=== PATIENT | male | born 1980 | race Caucasian/White ===

== ENCOUNTER 2023-05-15 12:19 | Emergency (ER) | payer MEDICAID, SELFPAY ==
[2023-05-15 12:25] VITALS: BP 123/80; PULSE 98; RESP 16; TEMP 36.9; O2SAT 99; BMI 19.8
--- NOTE | 2023-05-15 12:34 | [facility].EDGENADL ---
Discharge Plan Disposition Patient Disposition: Home, Self-Care Condition: Good Referrals Follow up/Referrals: Sebastian Drew [Primary Care Provider] - See instructions Activity Restrictions/Add. Instructions Additional Instructions/Restrictions: You were evaluated in the emergency department today. Please follow-up closely with your primary care provider. Return to the emergency department for any new or worsening symptoms. Take Tylenol and ibuprofen at home as needed for pain. Clinical Impressions Clinical Impression: Headache, Abdominal pain Instructions Patient Instructions: DI for Abdominal Pain-Adult, DI for Headache Discharge ED Provider: Nely Ruiz General Adult HPI General Chief complaint: Weakness Stated complaint: headache,neck pain, no accident,abd pain Time Seen by Provider: 05/15/23 12:23 Mode of Arrival: Ambulatory Source of Information: Patient Limitations: No Limitations Description of Symptoms (Recalled from ER Triage Doc. by RN): Presents via POV with c/o general malaise, fatigue, headache, neck pain, diffuse abd pain, and subjective intermittent fever x 4 days. Denies n/v/d. Last BM x 2 days (normal consistency). History of Present Illness HPI narrative: This patient is a 42-year-old male who reports a past medical history of migraines presenting to the emergency department for evaluation with concern for headache, subjective fever, neck pain, diffuse abdominal pain, and fatigue for the last 4 days. He states that he has been pretty much sleeping for the entire 4 days. He has not been eating or drinking very much. He denies any nausea, vomiting, or changes in bowel movements. His last bowel movement was 2 days ago, which he attributes to not eating. He states that he has had photophobia associated with his headache, but he denies any vision changes, numbness, tingling, unilateral weakness, nuchal rigidity, or other concerns. He denies taking any Tylenol, ibuprofen, or other medications to alleviate his symptoms. He states that he found an antibiotic at home and has been taking it to see if it helps get him feeling better, but it has not. Related Data Allergies Allergy/AdvReac Type Severity Reaction Status Date / Time No Known Allergies Allergy Verified 05/15/23 12:29 [facility] Disclaimer: The information contained in this section may have been updated after the patient was seen, as this information can be updated by other users. Social History Smoking Status: Current every day smoker alcohol intake: never current occupational status: employed Travel in the last 8 weeks: None ROS Obtained: Yes All systems reviewed & no additional complaints except as documented 14 point review of systems obtained and negative except as mentioned in HPI. Physical Exam General General appearance: alert and in no apparent distress Head Head exam: atraumatic and normocephalic Eye Eye exam: Present normal appearance, PERRL and EOMI; Absent scleral icterus, conjunctival redness, jaundice, conjunctival injection or nystagmus ENT ENT exam: Present normal exam, normal oropharynx and mucous membranes moist Neck Neck exam: Present normal inspection, full ROM, tenderness and other (Right-sided paraspinal muscles are tight and tender to palpation in the cervical spine.); Absent trachea midline, meningismus or lymphadenopathy Chest Chest inspection: Present normal inspection and symmetric chest wall rise; Absent tenderness Respiratory Respiratory exam: Present normal lung sounds bilaterally; Absent respiratory distress, wheezes, stridor or accessory muscle use Cardiovascular Cardiovascular exam: Present regular rate and normal rhythm Abdominal Exam Abdominal exam: Present soft and tenderness (Generalized); Absent distention or guarding Extremities Exam Extremities exam: Present normal inspection, full ROM and normal capillary refill; Absent tenderness or mariam
--- NOTE | 2023-05-15 12:38 | CT_ITS ---
FINAL REPORT TECHNIQUE: Noncontrast exam CLINICAL HISTORY: headache x 4d COMPARISON: None FINDINGS: No abnormal density is seen. Ventricles are normal. There is no hemorrhage. No mass effect is seen. Bone windows show no evidence of fracture. IMPRESSION: No acute findings Reviewed, Interpreted and Dictated by Meño Rodriguez MD Transcribed by Meghana Toussaint Authenticated and [facility]
--- NOTE | 2023-05-15 12:51 | PC.NURSE ---
To CT. Pt updated on plan of care.
[2023-05-15 12:55] LABS: Coronavirus 19, PCR Not Detected (NotDetected); Influenza A, PCR Not Detected (NotDetected); Influenza B, PCR Not Detected (NotDetected)
[2023-05-15 13:00] VITALS: BP 116/61; PULSE 84; O2SAT 99
[2023-05-15 13:02] LABS: Basophils # 0.1 K/mm3 (0-0.2); Basophils % 0.8 % (0.1-2.0); Eosinophils % 0.5 % (0.1-12.0); Hematocrit 43.6 % (42.0-52.0); Hemoglobin 14.5 g/dL (14.1-18.0); Lymphocytes # 0.9 K/mm3 (0.7-4.5); Lymphocytes % 15.1 % (10-50); Mean Corpuscular HGB Conc 33.2 g/dL (31.8-35.4); Mean Corpuscular Hemoglobin 28.2 pg (27.0-31.2); Mean Corpuscular Volume 85.1 fl (80-94); Mean Platelet Volume 7.8 fl (7.4-10.4); Monocytes # 0.3 K/mm3 (0.1-1.0); Monocytes % 5.2 % (1.7-9.3); Neutrophils # 4.8 K/mm3 (1.8-7.8); Neutrophils % 78.4 % (37.0-80.0); Platelet Count 230 K/mm3 (142-424); Red Blood Count 5.13 M/mm3 (4.60-6.20); White Blood Count 6.1 K/mm3 (4.8-10.8)
[2023-05-15 13:07] LABS: Alanine Aminotransferase 20 U/L (12-78); Albumin/Globulin Ratio 1.2 (1.1-1.8); Alkaline Phosphatase 75 U/L (38-126); Anion Gap 9.1 mEq/L (5-15); Aspartate Amino Transferase 29 U/L (17-59); Bilirubin,Total 0.4 mg/dl (0.2-1.3); Blood Urea Nitrogen 11 mg/dl (9-20); Calcium 8.6 mg/dl (8.4-10.2); Carbon Dioxide 27 mmol/L (22.0-30.0); Chloride 102 mmol/L (98-107); Creatinine Clearance Estimated 115 mL/min (50-200); Estimated Glomerular Filt Rate 106 ml/min (>60); GFR (African American) 128 ML/MIN (>60); Globulin 3.3 g/dL (1.3-3.2); Glucose 121 mg/dl (74-100); Lipase 107 U/L (23-300); Potassium 4.1 mmoL/L (3.5-5.1); Sodium 134 mmol/L (136-145); Total Protein,Serum 7.3 g/dl (6.3-8.2)
[2023-05-15 13:30] VITALS: BP 113/52; PULSE 86; O2SAT 98
[2023-05-15 15:05] VITALS: BP 113/52; PULSE 86; RESP 16; TEMP 36.9
== END 2023-05-15 15:07 | disposition home or self-care (01) ==
PROVIDERS: Emergency Provider Emergency Medicine; PCP Family Medicine
DX: R51.9 Headache, unspecified (principal); M54.2 Cervicalgia; R10.9 Unspecified abdominal pain; R53.83 Other fatigue; F17.210 Nicotine dependence, cigarettes, uncomplicated
CPT/HCPCS: 70450; 80053; 83690; 85025; 87636; 96361; 96374; 96375; 99285